=== PATIENT | female | born 2000 | race Two or more races ===

== ENCOUNTER 2019-02-05 18:57 | Observation (INO) | payer MEDICAID ==
[~2019-02-05] VITALS: Ht 160 cm; Wt 56.8 kg
[2019-02-05 19:21] VITALS: BP 145/75
[2019-02-05] MEDS ORDERED: TERBUTALINE SULFATE 1 MG/ML 1ML VIAL SC ONE (20:30)
[2019-02-05] MEDS ORDERED: PREN-96 PO (22:05)
== END 2019-02-05 22:02 | disposition home or self-care (01) | DRG 566 ==
LOC: ER 19:01 → LDRP 19:27
PROVIDERS: ADMIT Specialist; ATTEND Specialist
DX: O99.89 Other specified diseases and conditions complicating pregnancy, childbirth and the puerperium (principal); M54.9 Dorsalgia, unspecified; O26.892 Other specified pregnancy related conditions, second trimester; R10.9 Unspecified abdominal pain; Z3A.22 22 weeks gestation of pregnancy; Z87.891 Personal history of nicotine dependence
CPT/HCPCS: 59025; 81002; 96372; 99284; G0378; J3105